=== PATIENT | male | born 1950 | race Hispanic/Latino ===

== ENCOUNTER 2016-12-15 17:07 | Inpatient (IN) | payer OTHER ==
[~2016-12-15] VITALS: Ht 157.5 cm; Wt 83.6 kg
[2016-12-15 17:30] LABS: HEMATOCRIT 49.7 % (38.0-50.0); MCH 27.1 PG (29.0-34.0); MCHC 32.8 G/DL (30.0-36.0); MCV 82.7 FL (86-99); MEAN PLAT.VOLUME 8.5 uM^3 (9.0-12.4); PLATELET COUNT 274 K/uL (156-360); RBC DIS.WIDTH-CV 13.9 % (11.8-14.6); RBC DIS.WIDTH-SD 41.2 % (39-53); RED BLOOD COUNT 6.01 M/uL (4.00-5.50); WHITE BLOOD COUNT 11.6 K/uL (4.1-10.2)
[2016-12-15 17:39] LABS: CHLORIDE 99 mEq/L (99-109); POTASSIUM 4.4 mEq/L (3.7-5.4); SODIUM 132 mEq/L (136-147)
[2016-12-15 17:41] LABS: GLUCOSE 208 mg/dL (70-99)
[2016-12-15 17:43] LABS: ANION GAP 18 MEQ/L (2-14); TOTAL BILIRUBIN 1.1 mg/dL (0.0-1.0)
[2016-12-15 17:45] LABS: ALKALINE PHOSPHATASE 73 IU/L (3-129)
[2016-12-15 17:46] LABS: UREA NITROGEN (BUN) 25 mg/dL (9-23)
[2016-12-15 17:47] LABS: GFR ESTIMATE (CALCULATED) 23 mL/min/
[2016-12-15 18:54] LABS: LIPASE 13 U/L (1.0-51.0)
[2016-12-15 19:14] LABS: ADD MIUA? YES; BILIRUBIN NEGATIVE; BLOOD NEGATIVE; GLUCOSE (STRIP) 50; KETONES 5; LEUKOCYTES TRACE; NITRITE NEGATIVE; PROTEIN (STRIP) NEGATIVE; UROBILINOGEN 0.2 MG/DL (0.2-1.0)
[2016-12-15 19:20] LABS: COLOR DK YELLOW ((YELLOW))
[2016-12-15 19:27] LABS: BACTERIA RARE /HPF; CALCIUM OXALATE CRYSTALS 1+ /HPF; EPITHELIAL CELLS RARE /HPF; HYALINE CASTS 30-40 /LPF; MUCUS TRACE /LPF; RED BLOOD CELLS 0-5 /HPF (0-5); UCUL ADDED? NO; WHITE BLOOD CELLS 0-5 /HPF (0-5)
[2016-12-15 21:10] LABS: C DIFF TOXIN NEGATIVE (NEGATIVE)
[2016-12-15] MEDS ORDERED: PROCARDIA XL30 MG PO (21:10)
[2016-12-15] MEDS ORDERED: COREG3.125 M1 PO (21:10)
[2016-12-15] MEDS ORDERED: LASIX40 MG PO (21:11)
[2016-12-15] MEDS ORDERED: PRINIVIL20 MG PO (21:11)
[2016-12-15] MEDS ORDERED: ZOCOR40 MG PO (21:11)
[2016-12-15 21:13] LABS: PROBE CHECK PASS; SPECIMEN PROCESSING CONTROL PASS
[2016-12-16] VITALS (29 sets, daily range): BP systolic 82–140; BP diastolic 51–95
[2016-12-16 01:59] LABS: METH RESISTANT S AUREUS PCR NEGATIVE (NEGATIVE)
[2016-12-16 02:02] LABS: PROBE CHECK PASS; SPECIMEN PROCESSING CONTROL PASS
[2016-12-16 06:30] LABS: ANION GAP 14 MEQ/L (2-14); CHLORIDE 101 MEQ/L (99-109); POTASSIUM 3.6 MEQ/L (3.7-5.4); SAMPLE HEMOLYSIS CHECK 0; SAMPLE ICTERIC CHECK 0; SAMPLE LIPEMIA CHECK 0; SODIUM 133 MEQ/L (136-147); UREA NITROGEN (BUN) 31 mg/dL (9-23)
[2016-12-16 06:34] LABS: GFR ESTIMATE (CALCULATED) 34 mL/min/; GLUCOSE 114 mg/dL (70-99)
[2016-12-16 07:04] LABS: ABS NEUTROPHIL COUNT 3.1; ANISOCYTOSIS 1+; ATYPICAL LYMPHOCYTE 8.8 %; BAND NEUTROPHILS 62.3 % (0-8.0); EOSINOPHIL ABS CT 0; HEMATOCRIT 40.3 % (38.0-50.0); INSTRUMENT ABS NEUTROPHIL CT 3.2 K/uL; LYMPHOCYTES 6.1 % (15.0-45.0); MCH 26.7 PG (29.0-34.0); MCHC 32.8 G/DL (30.0-36.0); MCV 81.6 FL (86-99); METAMYELOCYTES 3.5 %; MICROCYTOSIS 1+; MYELOCYTES 0.9 %; PLATELET CLUMPS PRESENT - PLATELET COUNT APPEARS ADQ.; PLATELET COUNT UNABLE TO REPORT K/uL (156-360); POIKILOCYTOSIS 1+; RBC DIS.WIDTH-CV 13.9 % (11.8-14.6); RBC DIS.WIDTH-SD 41.2 % (39-53); RED BLOOD COUNT 4.94 M/uL (4.00-5.50); SEG.NEUTROPHILS 12.3 % (46.0-76.0); WHITE BLOOD COUNT 4.1 K/uL (4.1-10.2)
[2016-12-16 18:20] LABS: ANION GAP 13 MEQ/L (2-14); CHLORIDE 100 MEQ/L (99-109); GFR ESTIMATE (CALCULATED) 46 mL/min/; GLUCOSE 110 mg/dL (70-99); POTASSIUM 3.4 MEQ/L (3.7-5.4); SAMPLE HEMOLYSIS CHECK 0; SAMPLE ICTERIC CHECK 0; SAMPLE LIPEMIA CHECK 0; SODIUM 132 MEQ/L (136-147); UREA NITROGEN (BUN) 28 mg/dL (9-23)
[2016-12-17] VITALS (22 sets, daily range): BP systolic 95–140; BP diastolic 60–79
[2016-12-17 07:27] LABS: HEMATOCRIT 35.2 % (38.0-50.0); MCH 27.2 PG (29.0-34.0); MCHC 33.5 G/DL (30.0-36.0); MCV 81.1 FL (86-99); MEAN PLAT.VOLUME 9.5 uM^3 (9.0-12.4); RBC DIS.WIDTH-CV 13.6 % (11.8-14.6); RED BLOOD COUNT 4.34 M/uL (4.00-5.50); WHITE BLOOD COUNT 4.2 K/uL (4.1-10.2)
[2016-12-17 07:37] LABS: ANION GAP 10 MEQ/L (2-14); CHLORIDE 102 MEQ/L (99-109); GFR ESTIMATE (CALCULATED) > 59 mL/min/; GLUCOSE 114 mg/dL (70-99); POTASSIUM 3.1 MEQ/L (3.7-5.4); SAMPLE HEMOLYSIS CHECK 0; SAMPLE ICTERIC CHECK 0; SAMPLE LIPEMIA CHECK 0; SODIUM 137 MEQ/L (136-147); UREA NITROGEN (BUN) 21 mg/dL (9-23)
[2016-12-17 08:13] LABS: PLATELET COUNT 141 K/uL (156-360)
[2016-12-17 14:00] LABS: MAGNESIUM 1.6 mg/dl (1.3-2.7)
[2016-12-18] VITALS (8 sets, daily range): BP systolic 106–148; BP diastolic 62–81
[2016-12-18 05:51] LABS: HEMATOCRIT 35.4 % (38.0-50.0); MCHC 33.6 G/DL (30.0-36.0); MCV 80.5 FL (86-99); PLATELET COUNT 136 K/uL (156-360); RBC DIS.WIDTH-CV 13.4 % (11.8-14.6); RBC DIS.WIDTH-SD 39.2 % (39-53); WHITE BLOOD COUNT 4.7 K/uL (4.1-10.2)
[2016-12-18 06:15] LABS: ANION GAP 8 MEQ/L (2-14); CHLORIDE 105 MEQ/L (99-109); GFR ESTIMATE (CALCULATED) > 59 mL/min/; GLUCOSE 98 mg/dL (70-99); POTASSIUM 3.1 MEQ/L (3.7-5.4); SAMPLE HEMOLYSIS CHECK 0; SAMPLE ICTERIC CHECK 0; SAMPLE LIPEMIA CHECK 0; SODIUM 137 MEQ/L (136-147); UREA NITROGEN (BUN) 16 mg/dL (9-23)
[2016-12-19] VITALS (7 sets, daily range): BP systolic 134–177; BP diastolic 70–81
[2016-12-19 06:41] LABS: HEMATOCRIT 36.9 % (38.0-50.0); MCH 26.6 PG (29.0-34.0); MCHC 33.1 G/DL (30.0-36.0); MCV 80.4 FL (86-99); MEAN PLAT.VOLUME 9.3 uM^3 (9.0-12.4); PLATELET COUNT 155 K/uL (156-360); RBC DIS.WIDTH-CV 13.4 % (11.8-14.6); RBC DIS.WIDTH-SD 39.1 % (39-53); RED BLOOD COUNT 4.59 M/uL (4.00-5.50)
[2016-12-19 07:02] LABS: ANION GAP 6 MEQ/L (2-14); CHLORIDE 107 MEQ/L (99-109); GFR ESTIMATE (CALCULATED) > 59 mL/min/; GLUCOSE 87 mg/dL (70-99); POTASSIUM 3.4 MEQ/L (3.7-5.4); SAMPLE HEMOLYSIS CHECK 0; SAMPLE ICTERIC CHECK 0; SAMPLE LIPEMIA CHECK 0; SODIUM 138 MEQ/L (136-147); UREA NITROGEN (BUN) 12 mg/dL (9-23)
[2016-12-19 07:16] LABS: EOSINOPHIL COUNT 0.1 K/uL (0-0.3); IMMATURE GRANULOCYTE (%) 1.3 % (0.0-0.7); IMMATURE GRANULOCYTE COUNT 0.1 K/uL; INSTRUMENT ABS NEUTROPHIL CT 3.7 K/uL; LYMPHOCYTE COUNT 1.6 K/uL (1.0-2.8); MONOCYTE (%) 7.4 % (3-12); MONOCYTE COUNT 0.4 K/uL (0-0.8); NEUTROPHIL (%) 62.5 % (45-76); NEUTROPHIL COUNT 3.7 K/uL (1.8-6.4); PLAT.SUFFICIENCY ADEQUATE
[2016-12-19] MEDS ORDERED: CIPRO500 MG PO (16:44)
[2016-12-20 04:50] VITALS: BP 108/66
[2016-12-20 09:15] VITALS: BP 170/80
[2016-12-20 10:36] LABS: HEMATOCRIT 38.1 % (38.0-50.0); MCH 26.8 PG (29.0-34.0); MCHC 33.3 G/DL (30.0-36.0); MCV 80.4 FL (86-99); MEAN PLAT.VOLUME 9.1 uM^3 (9.0-12.4); PLATELET COUNT 181 K/uL (156-360); RBC DIS.WIDTH-CV 13.4 % (11.8-14.6); RED BLOOD COUNT 4.74 M/uL (4.00-5.50); WHITE BLOOD COUNT 7.6 K/uL (4.1-10.2)
[2016-12-20 10:53] LABS: ANION GAP 11 MEQ/L (2-14); CHLORIDE 107 MEQ/L (99-109); GFR ESTIMATE (CALCULATED) > 59 mL/min/; GLUCOSE 184 mg/dL (70-99); POTASSIUM 3.6 MEQ/L (3.7-5.4); SAMPLE HEMOLYSIS CHECK 0; SAMPLE ICTERIC CHECK 0; SAMPLE LIPEMIA CHECK 0; SODIUM 139 MEQ/L (136-147); UREA NITROGEN (BUN) 11 mg/dL (9-23)
[2016-12-20 11:36] VITALS: BP 177/81
== END 2016-12-20 14:36 | disposition home or self-care (01) | DRG 871 ==
LOC: EME 17:07 → 4WEST 20:33 → 4EAST 20:33 → EDOF 20:33 → 4WEST 23:55 → 4EAST 12-18 08:53
PROVIDERS: Internal Medicine; Internal Medicine Critical Care Medicine; Internal Medicine Pulmonary Disease; Nurse Practitioner Family; Physician Assistant
PROC: 02HV33Z Insertion of Infusion Device into Superior Vena Cava, Percutaneous Approach (ICD-10-PCS; principal; 2016-12-15)
DX: A02.1 Salmonella sepsis (principal); R65.21 Severe sepsis with septic shock; E87.1 Hypo-osmolality and hyponatremia; N17.9 Acute kidney failure, unspecified; A04.8 Other specified bacterial intestinal infections; E87.2 Acidosis; I10 Essential (primary) hypertension; R73.9 Hyperglycemia, unspecified; I25.10 Atherosclerotic heart disease of native coronary artery without angina pectoris; E78.5 Hyperlipidemia, unspecified
CPT/HCPCS: 71010; 74176; 80048; 80048 91; 80053; 81003; 82140; 83605; 83690; 83735; 84100; 85025; 85027; 87040; 87077; 87186; 87493; 87506; 87641; 87801; 99281; 99285; J0744; J1644; J1956; J2405; J2543; J3480; J7030; J7040; J7050; J7120; S0028

== ENCOUNTER 2017-07-24 16:32 | Inpatient (IN) | payer OTHER ==
[~2017-07-24] VITALS: Ht 157.5 cm; Wt 79.2 kg
[~2017-07-24 16:32] MED LIST: CIPRO500 MG PO; COREG3.125 M1 PO; LASIX40 MG PO; PRINIVIL20 MG PO; PROCARDIA XL30 MG PO; ZOCOR40 MG PO
[2017-07-24 17:39] LABS: EOSINOPHIL (%) 2.1 % (0-5); EOSINOPHIL COUNT 0.1 K/uL (0-0.3); HEMATOCRIT 39.6 % (38.0-50.0); IMMATURE GRANULOCYTE (%) 0.3 % (0.0-0.7); INSTRUMENT ABS NEUTROPHIL CT 4.1 K/uL; LYMPHOCYTE COUNT 1.7 K/uL (1.0-2.8); MCH 27.3 PG (29.0-34.0); MCHC 32.8 G/DL (30.0-36.0); MCV 83.2 FL (86-99); MEAN PLAT.VOLUME 9.2 uM^3 (9.0-12.4); MONOCYTE (%) 4.5 % (3-12); MONOCYTE COUNT 0.3 K/uL (0-0.8); NEUTROPHIL (%) 65.7 % (45-76); NEUTROPHIL COUNT 4.1 K/uL (1.8-6.4); PLATELET COUNT 169 K/uL (156-360); RBC DIS.WIDTH-CV 13.2 % (11.8-14.6); RBC DIS.WIDTH-SD 39.8 % (39-53); RED BLOOD COUNT 4.76 M/uL (4.00-5.50); WHITE BLOOD COUNT 6.2 K/uL (4.1-10.2)
[2017-07-24 17:47] LABS: ADD MIUA? NO; BILIRUBIN NEGATIVE; BLOOD NEGATIVE; COLOR STRAW ((YELLOW)); GLUCOSE (STRIP) >=500; KETONES NEGATIVE; LEUKOCYTES NEGATIVE; NITRITE NEGATIVE; PROTEIN (STRIP) NEGATIVE; SPECIFIC GRAVITY 1.028 (1.000-1.030); UCUL ADDED? NO; UROBILINOGEN 0.2 MG/DL (0.2-1.0)
[2017-07-24 17:47] LABS: INTER. NORMALIZED RATIO 1.1
[2017-07-24 17:50] LABS: PTT 30.5 SEC (25-37)
[2017-07-24 17:51] LABS: CHLORIDE 101 mEq/L (99-109); POTASSIUM 4.2 mEq/L (3.7-5.4); SODIUM 132 mEq/L (136-147)
[2017-07-24 17:54] LABS: ANION GAP 9 MEQ/L (2-14)
[2017-07-24 17:56] LABS: GFR ESTIMATE (CALCULATED) > 59 mL/min/
[2017-07-24 17:57] LABS: UREA NITROGEN (BUN) 10 mg/dL (9-23)
[2017-07-24 17:59] LABS: GLUCOSE 632 mg/dL (70-99)
[2017-07-24] MEDS ORDERED: PLAVIX75 MG PO (19:05)
[2017-07-24 19:45] LABS: POINT-OF-CARE METER ID UU13113702
[2017-07-24 21:29] LABS: INTER. NORMALIZED RATIO 1.1; PROTHROMBIN TIME 12.6 SEC (10.2-12.9)
[2017-07-24 21:32] LABS: PTT 28.8 SEC (25-37)
[2017-07-24 21:41] LABS: TOTAL BILIRUBIN 0.4 mg/dL (0.0-1.0)
[2017-07-24 21:42] LABS: ALKALINE PHOSPHATASE 94 IU/L (3-129)
[2017-07-24 21:45] LABS: DIRECT BILIRUBIN 0.2 mg/dL (0.0-0.3)
[2017-07-25 00:06] VITALS: BP 181/76
[2017-07-25 01:01] LABS: POINT-OF-CARE METER ID UU14314084
[2017-07-25 01:29] LABS: HEMATOCRIT 36.2 % (38.0-50.0); MCV 82.5 FL (86-99)
[2017-07-25 03:20] VITALS: BP 126/70
[2017-07-25 06:42] LABS: HEMATOCRIT 36.8 % (38.0-50.0); MCV 83.6 FL (86-99)
[2017-07-25 07:03] LABS: POINT-OF-CARE METER ID UU14208750
[2017-07-25 07:15] LABS: ANION GAP 6 MEQ/L (2-14); CHLORIDE 107 MEQ/L (99-109); GFR ESTIMATE (CALCULATED) > 59 mL/min/; POTASSIUM 3.9 MEQ/L (3.7-5.4); SAMPLE HEMOLYSIS CHECK 0; SAMPLE ICTERIC CHECK 0; SAMPLE LIPEMIA CHECK 0; SODIUM 138 MEQ/L (136-147); UREA NITROGEN (BUN) 8 mg/dL (9-23)
[2017-07-25 07:17] LABS: GLUCOSE 205 mg/dL (70-99)
[2017-07-25 07:25] VITALS: BP 123/67
[2017-07-25 09:08] LABS: Estimated Average Glucose 335 mg/dL (70-123); HEMOGLOBIN A1c (GLYCOHEMOGLOB) 13.3 % HGB (Below 5.7)
[2017-07-25 11:23] VITALS: BP 142/70
[2017-07-25 12:09] LABS: INTER. NORMALIZED RATIO 1.1; PROTHROMBIN TIME 12.7 SEC (10.2-12.9)
[2017-07-25 12:11] LABS: PTT 30.1 SEC (25-37)
[2017-07-25 15:25] VITALS: BP 110/56
[2017-07-25 16:30] LABS: POINT-OF-CARE METER ID UU14208750; POINT-OF-CARE USER ID PUTDRM
[2017-07-25 19:29] VITALS: BP 127/69
[2017-07-25 22:16] LABS: POINT-OF-CARE METER ID UU14208750
[2017-07-26 01:08] VITALS: BP 125/62
[2017-07-26 03:28] VITALS: BP 126/74
[2017-07-26 06:51] LABS: EOSINOPHIL (%) 2.4 % (0-5); EOSINOPHIL COUNT 0.2 K/uL (0-0.3); HEMATOCRIT 37.8 % (38.0-50.0); IMMATURE GRANULOCYTE (%) 0.1 % (0.0-0.7); LYMPHOCYTE COUNT 1.9 K/uL (1.0-2.8); MCH 26.8 PG (29.0-34.0); MCHC 32.3 G/DL (30.0-36.0); MCV 82.9 FL (86-99); MEAN PLAT.VOLUME 9.1 uM^3 (9.0-12.4); MONOCYTE (%) 5.2 % (3-12); MONOCYTE COUNT 0.4 K/uL (0-0.8); NEUTROPHIL (%) 67.1 % (45-76); PLATELET COUNT 184 K/uL (156-360); RBC DIS.WIDTH-CV 13.3 % (11.8-14.6); RBC DIS.WIDTH-SD 39.9 % (39-53); RED BLOOD COUNT 4.56 M/uL (4.00-5.50); WHITE BLOOD COUNT 7.5 K/uL (4.1-10.2)
[2017-07-26 07:09] LABS: ALKALINE PHOSPHATASE 71 IU/L (3-129); ANION GAP 7 MEQ/L (2-14); CHLORIDE 106 MEQ/L (99-109); GFR ESTIMATE (CALCULATED) > 59 mL/min/; GLUCOSE 154 mg/dL (70-99); POTASSIUM 3.8 MEQ/L (3.7-5.4); SAMPLE HEMOLYSIS CHECK 0; SAMPLE ICTERIC CHECK 0; SAMPLE LIPEMIA CHECK 0; SODIUM 140 MEQ/L (136-147); TOTAL BILIRUBIN 0.6 MG/DL (0.0-1.0); UREA NITROGEN (BUN) 6 mg/dL (9-23)
[2017-07-26 07:44] VITALS: BP 131/68
[2017-07-26] MEDS ORDERED: LEVEMIR100 UNIT/2 SC (11:01)
[2017-07-26] MEDS ORDERED: PANTOPRAZOLE SO40 MG PO (11:01)
[2017-07-26] MEDS ORDERED: GLUCOMETER MC (11:06)
[2017-07-26] MEDS ORDERED: 1ST TIER UNILE1 EAC1 MC (11:07)
[2017-07-26 11:38] LABS: POINT-OF-CARE METER ID UU14208750
[2017-07-26 12:00] VITALS: BP 126/70
== END 2017-07-26 13:25 | disposition home or self-care (01) | DRG 379 ==
LOC: EME 16:32 → EDOF 20:53 → ENRESERV 20:55 → CANRESERV 20:55 → EDOF 21:00 → 2EAST 21:00 → EDOF 21:00 → ENRESERV 21:08 → 2EAST 22:53
PROVIDERS: Emergency Medicine; Hospitalist
DX: K92.1 Melena (principal); E11.65 Type 2 diabetes mellitus with hyperglycemia; E78.5 Hyperlipidemia, unspecified; I25.2 Old myocardial infarction; I10 Essential (primary) hypertension; Z95.5 Presence of coronary angioplasty implant and graft; I25.10 Atherosclerotic heart disease of native coronary artery without angina pectoris; Z79.02 Long term (current) use of antithrombotics/antiplatelets
CPT/HCPCS: 74177; 80048; 80053; 80076; 81003; 82948; 83036; 83605; 85014; 85018; 85025; 85610; 85730; 86850; 86900; 86901; 99281; 99285; C9113; J1815; J7030